=== PATIENT | male | born 1975 | race Hispanic/Latino ===

== ENCOUNTER 2022-04-15 04:04 | Emergency (ER) ==
[2022-04-15] MEDS ORDERED: FENTANYL 50 MCG/ML 1 ML VIAL ONE (04:17)
== END 2022-04-15 05:28 | disposition home or self-care (01) ==
LOC: ERS 04:04
DX: S82.842A Displaced bimalleolar fracture of left lower leg, initial encounter for closed fracture (principal); I10 Essential (primary) hypertension; Y04.8XXA Assault by other bodily force, initial encounter
CPT/HCPCS: 27840; 96374; J3010

== ENCOUNTER 2022-04-19 13:35 | Outpatient (CLI) | payer OTHER | END 2022-04-19 13:36 | disposition home or self-care (01) | LOC: LABBT 13:35 | PROVIDERS: ATTEND Orthopaedic Surgery | DX: Z01.810 Encounter for preprocedural cardiovascular examination (principal); S82.62XA Displaced fracture of lateral malleolus of left fibula, initial encounter for closed fracture | CPT/HCPCS: 93005; 93010 ==

== ENCOUNTER 2022-04-21 07:04 | Day surgery (SDC) | payer OTHER ==
[2022-04-20 10:38] VITALS: BMI 26.5
[2022-04-21] MEDS ORDERED: Bupivacaine PF 0.5% 30 ML VIAL ONE (08:55)
[2022-04-21] MEDS ORDERED: fentaNYL PF 100 MCG/2 ML SYRINGE ONE (09:19)
[2022-04-21] MEDS ORDERED: CEFAZOLIN 2 GM VIAL ONE (09:31)
[2022-04-21] MEDS ORDERED: Sodium Chloride 0.9% 100 ML ONE (09:31)
[2022-04-21] MEDS ORDERED: PROPOFOL 200 MG/20 ML VIAL ONE (09:38)
[2022-04-21] MEDS ORDERED: Dexamethasone 20 MG/5 ML VIAL ONE (09:38)
[2022-04-21] MEDS ORDERED: Ketorolac Tromethamine 30 MG/ML VIAL ONE (09:38)
[2022-04-21] MEDS ORDERED: Ondansetron PF 4 MG/2 ML Vial ONE (09:38)
[2022-04-21] MEDS ORDERED: FENTANYL 50 MCG/ML 1 ML VIAL ONE (11:18)
[2022-04-21] MEDS ORDERED: HYDROcodone/Acetaminophen 5/325 mg Tablet ONE (12:05)
== END 2022-04-21 13:25 | disposition home or self-care (01) ==
LOC: SDC 07:04
PROVIDERS: ATTEND Orthopaedic Surgery
PROC: 0QSK04Z Reposition Left Fibula with Internal Fixation Device, Open Approach (ICD-10-PCS; principal; 2022-04-21)
PROC: 0SSG04Z Reposition Left Ankle Joint with Internal Fixation Device, Open Approach (ICD-10-PCS; principal; 2022-04-21)
DX: S82.62XA Displaced fracture of lateral malleolus of left fibula, initial encounter for closed fracture (principal); S93.432A Sprain of tibiofibular ligament of left ankle, initial encounter; I10 Essential (primary) hypertension; Z79.899 Other long term (current) drug therapy; Y09 Assault by unspecified means
CPT/HCPCS: C1713; C1776; J1100; J1885; J2405; J2704; J3010; J3490; S0020